=== PATIENT | female | born 1960 | race Caucasian/White ===

== ENCOUNTER 2016-07-08 00:52 | Inpatient (IN) | payer OTHER ==
[2016-07-08] MEDS ORDERED: Sodium Chloride 0.9% 1,000 ML IV ONE ×2 (01:01→03:49)
[2016-07-08] MEDS ORDERED: Metoclopramide 10 MG/2 ML SDV IVPUSH ONE (01:31)
[2016-07-08] MEDS ORDERED: Famotidine 20 MG/2 ML SDV IVPUSH ONE (01:32)
[2016-07-08] MEDS ORDERED: methylPREDNISolone Sodium Succinate 125 MG/2 ML SDV IM ONE (01:34)
[2016-07-08] MEDS ORDERED: Albuterol/Ipratropium 3.0-0.5 MG/3 ML Neb Soln NEB ONE (01:36)
--- NOTE | 2016-07-08 01:38 | EDM.PDOC ---
ED HISTORY OF PRESENT ILLNESS - General Chief Complaint: Respiratory Problem Stated Complaint: TROUBLE BREATHING Time Seen by Provider: 07/08/16 01:15 Source of Information: Reports: Patient History Limitations: Reports: No limitations - History of Present Illness INITIAL COMMENTS - FREE TEXT/NARRATIVE: c/o feeling weak dizzy, SOB. Started to get sick on Thursday, Seen in clinic on dx'd influenza B , strep negative. Started on Tamiflu, unable to take last dose today r/t nausea. Peak flow baseline 300-380, last couple days 260. Fever 103 at home tonight. Severity: moderate Location, General: Reports: generalized Associated Symptoms (General): Reports: cough, fever/chills, loss of appetite, nausea/vomiting, shortness of breath, weakness. Denies: cough w sputum - Related Data Allergies/ADRs: Allergies Allergy/AdvReac Type Severity Reaction Status Date / Time No Known Allergies Allergy Verified 07/08/13 12:26 Home Meds: Home Meds Albuterol [Ventolin HFA] 2 inhalation IH ASDIRECTED PRN 04/13/14 [History] Mometasone/Formoterol [Dulera 200 MCG/5 MCG] 1 puff INH BID 04/13/14 [History] Albuterol [IJD: Albuterol] 2.5 mg INH Q12H 07/08/16 [History] Azelastine HCl [Azelastine] 2 spray NASBOTH BID 07/08/16 [History] Beclomethasone Dipropionate [Beconase Aq] 2 spray NASBOTH DAILY 07/08/16 [ History] Budesonide [Pulmicort] 0.25 mg NEB BID 07/08/16 [History] Cholecalciferol (Vitamin D3) [Vitamin D3] 1,000 unit PO BID 07/08/16 [History] EPINEPHrine [Epinephrine] 0.3 mg IM ASDIRECTED PRN 07/08/16 [History] Fluconazole [Diflucan] 200 mg PO DAILY 07/08/16 [History] Hydrochlorothiazide 25 mg PO DAILY 07/08/16 [History] Ibuprofen 600 mg PO Q8H PRN 07/08/16 [History] Montelukast [Singulair] 10 mg PO BEDTIME 07/08/16 [History] Omalizumab [Xolair] 2.4 l .XX ASDIRECTED 07/08/16 [History] Pantoprazole [Protonix] 40 mg PO BIDAC 07/08/16 [History] Tiotropium [Spiriva HandiHaler] 2 puff INH DAILY 07/08/16 [History] predniSONE 07/08/16 [History] Social & Family History - Tobacco Use Smoking Status *Q: Never Smoker Second Hand Smoke Exposure: No ED ROS GENERAL - Review of Systems Review Of Systems: See Below Constitutional: Reports: fever, chills, weakness, decreased appetite HEENT: Reports: Throat pain (mild, strep test in clinic negative) Respiratory: Reports: Shortness of Breath, Wheezing, Cough Cardiovascular: Reports: Dyspnea on exertion, Lightheadedness GI/Abdominal: Reports: Decreased appetite, Nausea : Reports: no symptoms Musculoskeletal: Reports: other (generalized aches) Skin: Reports: no symptoms Neurological: Reports: No Symptoms Psychiatric: Reports: Anxiety ED EXAM, GENERAL - Physical Exam Exam: See Below Exam Limited By: No limitations General Appearance: alert, moderate distress, obese Eye Exam: bilateral eye: EOMI Ears: normal external exam, normal TMs Nose: normal inspection Throat/Mouth: Normal inspection, Inflammation (mild posterior pharnyx) Head: atraumatic, normocephalic Neck: normal inspection, full range of motion Respiratory/Chest: rales (left base), rhonchi (right), other (frequent cough). No: wheezing Cardiovascular: regular rate, rhythm, no edema, tachycardia GI/Abdominal: normal bowel sounds, soft Back Exam: normal inspection Neurological: alert, oriented, normal cognition Psychiatric: normal affect, anxious (mild) Skin Exam: Warm, Dry, Intact, Normal color, No rash Course - Vital Signs Last Recorded V/S: Last Vital Signs Temp 98.8 F 07/08/16 02:32 Pulse 107 H 07/08/16 02:32 Resp 20 07/08/16 02:32 BP 115/60 07/08/16 02:32 Pulse Ox 94 L 07/08/16 02:32 - Orders/Labs/Meds Orders: Active Orders 24 hr Category Date Time Status EKG 12 Lead [EKG Documentation Completion] [RC] URGENT Care 07/08/16 02:17 Active Oxygen Therapy Adult [Oxygen Therapy, ED] [RC] Care 07/08/16 02:30 Active ASDIRECTED RT Aerosol Therapy [RC] ASDIRECTED Care 07/08/16 01:36 Active Chest 1V Frontal [CR] Urgent Exams 07/08/16 01:00 Taken Chest w Cont [CT] Urgent Exams 07/08/16 02:48 Taken CULTURE BLOOD [BC] Stat Lab 07/08/16 01:09 Received CULTURE BLOOD [BC] Stat Lab 07/08/16 01:15 Received Sodium Chloride 0.9% [Normal Saline] 1,000 ml Med 07/08/16 03:49 Active IV .BOLUS Blood Culture x2 Reflex Set [OM.PC] Stat Oth 07/08/16 01:00 Ordered Medication Orders Sodium Chloride (Normal Saline) 1,000 mls @ 250 mls/hr IV .BOLUS ONE Stop: 07/08/16 07:48 Labs: Laboratory Tests 07/08/16 07/08/16 07/08/16 Range/Units 01:09 01:09 01:15 WBC 11.4 H (5.0-10.0) 10^3/uL RBC 5.03 (4.2-5.4) 10^6/uL Hgb 13.2 (12.0-16.0) g/dL Hct 39.8 (37.0-47.0) % MCV 79.1 L (80-100) fL MCH 26.2 L (27.0-34.0) pg MCHC 33.2 (33.0-35.0) g/dL Plt Count 278 (150-450) 10^3/uL Neut % (Auto) 72.6 (42.2-75.2) % Lymph % (Auto) 23.1 (20.5-50.1) % [place]ander % (Auto) 3.9 (2-8) % Eos % (Auto) 0.1 L (1.0-3.0) % Baso % (Auto) 0.3 (0.0-1.0) % Add Manual Diff Yes Neutrophils % (Manual) 69 % Band Neutrophils % 5 % Lymphocytes % (Manual) 21 % Monocytes % (Manual) 5 % D-Dimer, Quantitative > 5000 H (0-400) ng/mL Sodium 133 L (135-145) mmol/L Potassium 3.9 (3.6-5.0) mmol/L Chloride 97 L (101-111) mmol/L Carbon Dioxide 25.0 (21.0-31.0) mmol/L Anion Gap 14.9 BUN 11 (7-18) mg/dL Creatinine 0.7 (0.6-1.3) mg/dL Est Cr Clr Drug Dosing TNP Estimated GFR (MDRD) > 60 BUN/Creatinine Ratio 15.71 Glucose 105 (74-105) mg/dL Lactic Acid (0.5-2.2) mmol/L Calcium 9.2 (8.4-10.2) mg/dl Total Bilirubin 0.9 (0.2-1.0) mg/dL AST 36 (10-42) IU/L ALT 42 (10-60) IU/L Alkaline Phosphatase 118 (42-121) IU/L Troponin I (0.00-0.02) ng/ml C-Reactive Protein (0.0-1.3) mg/dL Total Protein 7.2 (6.7-8.2) g/dl Albumin 3.7 (3.2-5.5) g/dl Globulin 3.5 Albumin/Globulin Ratio 1.06 Amylase 56 (28-100) U/L Lipase 21 L (22-51) U/L 07/08/16 07/08/16 07/08/16 Range/Units 01:15 01:15 01:15 WBC (5.0-10.0) 10^3/uL RBC (4.2-5.4) 10^6/uL Hgb (12.0-16.0) g/dL Hct (37.0-47.0) % MCV (80-100) fL MCH (27.0-34.0) pg MCHC (33.0-35.0) g/dL Plt Count (150-450) 10^3/uL Neut % (Auto) (42.2-75.2) % Lymph % (Auto) (20.5-50.1) % Lander % (Auto) (2-8) % Eos % (Auto) (1.0-3.0) % Baso % (Auto) (0.0-1.0) % Add Manual Diff Neutrophils % (Manual) % Band Neutrophils % % Lymphocytes % (Manual) % Monocytes % (Manual) % D-Dimer, Quantitative (0-400) ng/mL Sodium (135-145) mmol/L Potassium (3.6-5.0) mmol/L Chloride (101-111) mmol/L Carbon Dioxide (21.0-31.0) mmol/L Anion Gap BUN (7-18) mg/dL Creatinine (0.6-1.3) mg/dL Est Cr Clr Drug Dosing Estimated GFR (MDRD) BUN/Creatinine Ratio Glucose (74-105) mg/dL Lactic Acid 1.2 (0.5-2.2) mmol/L Calcium (8.4-10.2) mg/dl Total Bilirubin (0.2-1.0) mg/dL AST (10-42) IU/L ALT (10-60) IU/L Alkaline Phosphatase (42-121) IU/L Troponin I < 0.02 (0.00-0.02) ng/ml C-Reactive Protein 3.7 H (0.0-1.3) mg/dL Total Protein (6.7-8.2) g/dl Albumin (3.2-5.5) g/dl Globulin Albumin/Globulin Ratio Amylase (28-100) U/L Lipase (22-51) U/L Meds: Medications Generic Name Dose Route Start Last Admin Trade Name Freq PRN Reason Stop Dose Admin Sodium Chloride 1,000 mls @ 250 mls/hr 07/08/16 03:49 Normal Saline IV 07/08/16 07:48 .BOLUS ONE Discontinued Medications Generic Name Dose Route Start Last Admin Trade Name Freq PRN Reason Stop Dose Admin Albuterol/Ipratropium 3 ml 07/08/16 01:36 07/08/16 01:47 Duoneb 3.0-0.5 Mg/3 Ml NEB 07/08/16 01:37 3 ml ONETIME ONE Administration Famotidine 20 mg 07/08/16 01:32 07/08/16 01:38 Pepcid IVPUSH 07/08/16 01:33 20 mg ONETIME ONE Administration Guaifenesin/Codeine Phosphate 5 ml 07/08/16 02:05 07/08/16 02:08 Robitussin Ac PO 07/08/16 02:06 5 ml ONETIME ONE Administration Sodium Chloride 1,000 mls @ 999 mls/hr 07/08/16 01:01 07/08/16 01:19 Normal Saline IV 07/08/16 02:01 999 mls/hr .BOLUS ONE Administration Iopamidol 100 ml 07/08/16 02:50 07/08/16 03:41 Isovue-370 (76%) IVPUSH 07/08/16 02:51 77 ml ONETIME ONE Administration Methylprednisolone Sodium Succinate 125 mg 07/08/16 01:43 07/08/16 01:47 Solu-Medrol IVPUSH 07/08/16 01:44 125 mg ONETIME ONE Administration Metoclopramide HCl 10 mg 07/08/16 01:31 07/08/16 01:38 Reglan IVPUSH 07/08/16 01:32 10 mg ONETIME ONE Administration - Radiology Interpretation Free Text/Narrative:: CXR bilateral basilar pneumonitis, CT Results Date: 07/08/16 (CT PE study negative) - Re-Assessments/Exams Free Text/Narrative Re-Assessment/Exam: 07/08/16 03:01 EKG sinus tach. TC consult Dr. Young accepting of patient. D-dimer elevated. Dr. Young notified. CT chest PE protocol Departure - Departure Time of Disposition: 01:38 Disposition: Admitted As Inpatient 66 Condition: fair Clinical Impression: Exacerbation of asthma, Influenza Additional Instructions: increase fiber in diet miralax one capful daily liquid diet for 24 hours \then advance as tolerated slowly increase walking activity and use of narcotic pain mediations as able. - My Orders Last 24 Hours: My Active Orders 07/08/16 01:00 Chest 1V Frontal [CR] Urgent Blood Culture x2 Reflex Set [OM.PC] Stat 07/08/16 01:09 CULTURE BLOOD [BC] Stat 07/08/16 01:15 CULTURE BLOOD [BC] Stat 07/08/16 01:36 RT Aerosol Therapy [RC] ASDIRECTED 07/08/16 02:17 EKG 12 Lead [EKG Documentation Completion] [RC] URGENT 07/08/16 02:30 Oxygen Therapy Adult [Oxygen Therapy, ED] [RC] ASDIRECTED 07/08/16 02:48 Chest w Cont [CT] Urgent 07/08/16 03:49 Sodium Chloride 0.9% [Normal Saline] 1,000 ml IV .BOLUS - Assessment/Plan Last 24 Hours: My Active Orders 07/08/16 01:00 Chest 1V Frontal [CR] Urgent Blood Culture x2 Reflex Set [OM.PC] Stat 07/08/16 01:09 CULTURE BLOOD [BC] Stat 07/08/16 01:15 CULTURE BLOOD [BC] Stat 07/08/16 01:36 RT Aerosol Therapy [RC] ASDIRECTED 07/08/16 02:17 EKG 12 Lead [EKG Documentation Completion] [RC] URGENT 07/08/16 02:30 Oxygen Therapy Adult [Oxygen Therapy, ED] [] ASDIRECTED 07/08/16 02:48 Chest w Cont [CT] Urgent 07/08/16 03:49 Sodium Chloride 0.9% [Normal Saline] 1,000 ml IV .BOLUS
[2016-07-08 01:41] LABS: CHLORIDE,CL 97 mmol/L (101-111); SODIUM,NA 133 mmol/L (135-145)
[2016-07-08] MEDS ORDERED: methylPREDNISolone Sodium Succinate 125 MG/2 ML SDV IVPUSH ONE (01:43)
[2016-07-08] MEDS ORDERED: Codeine/guaiFENesin 100-10 MG/5 ML Syrup 5 ML Cup PO ONE (02:05)
[2016-07-08] MEDS ORDERED: Iopamidol 755 Mg/ML 100 ML Bottle IVPUSH ONE (02:50)
[2016-07-08] MEDS ORDERED: Azithromycin 500 MG in Sodium Chloride 0.9% 250 ML IV ONE (04:00)
[2016-07-08] MEDS ORDERED: Azithromycin 500 MG Vial ONE (04:19)
[2016-07-08] MEDS: methylPREDNISolone Sodium Succinate 40 MG/1 ML SDV IVPUSH SCH ×3 (04:42→20:28)
[2016-07-08] MEDS: Pantoprazole 40 MG Tab.CR PO SCH ×2 (05:41→17:11)
[2016-07-08] MEDS: Albuterol/Ipratropium 3.0-0.5 MG/3 ML Neb Soln NEB SCH ×5 (07:34→21:59)
--- NOTE | 2016-07-08 08:58 | PCM.HP ---
H&P History of Present Illness - General Date of Service: 07/08/16 Admit Problem/Dx: Admission Diagnosis/Problem Admission Diagnosis/Problem Dyspnea Source of Information: Patient History Limitations: Reports: No limitations - History of Present Illness Initial Comments - Free Text/Narative: Patient is a 56 year old female came in to the emergency room because of persistent shortness of breath. Started last week, has been cough productive of phlegm, with some chest tightness. Had fever last week around 102F. Was seen in the clinic, was diagnosed to have Influenza B, prescribed with Tamiflu. Symptoms however persistent. Was exposed to her granddaughter who had influenza A. Continues to have cough and SOB, and another episode of fever, went to ER. no nausea, vomiting, constipation nor diarrhea. No leg swelling. Headache Pain Score (Numeric/FACES): 0 - Related Data Allergies/Adverse Reactions: Allergies Allergy/AdvReac Type Severity Reaction Status Date / Time No Known Allergies Allergy Verified 07/08/13 12:26 Home Medications: Home Meds Albuterol [Ventolin HFA] 2 inhalation IH ASDIRECTED PRN 04/13/14 [History] Mometasone/Formoterol [Dulera 200 MCG/5 MCG] 1 puff INH BID 04/13/14 [History] Albuterol [IJD: Albuterol] 2.5 mg INH Q12H 07/08/16 [History] Azelastine HCl [Azelastine] 2 spray NASBOTH BID 07/08/16 [History] Beclomethasone Dipropionate [Beconase Aq] 2 spray NASBOTH DAILY 07/08/16 [ History] Budesonide [Pulmicort] 0.25 mg NEB BID 07/08/16 [History] Cholecalciferol (Vitamin D3) [Vitamin D3] 1,000 unit PO BID 07/08/16 [History] EPINEPHrine [Epinephrine] 0.3 mg IM ASDIRECTED PRN 07/08/16 [History] Fluconazole [Diflucan] 200 mg PO DAILY 07/08/16 [History] Hydrochlorothiazide 25 mg PO DAILY 07/08/16 [History] Ibuprofen 600 mg PO Q8H PRN 07/08/16 [History] Montelukast [Singulair] 10 mg PO BEDTIME 07/08/16 [History] Omalizumab [Xolair] 2.4 l .XX ASDIRECTED 07/08/16 [History] Pantoprazole [Protonix] 40 mg PO BIDAC 07/08/16 [History] Tiotropium [Spiriva HandiHaler] 2 puff INH DAILY 07/08/16 [History] predniSONE 07/08/16 [History] Past Medical History HEENT History: Reports: Allergic rhinitis Cardiovascular History: Reports: Heart murmur Respiratory History: Reports: Asthma, Bronchitis, recurrent, Pneumonia, recurrent Gastrointestinal History: Reports: Cholelithiasis, GERD Genitourinary History: Reports: None 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 OB/BYN History: 2 NVD Musculoskeletal History: Reports: Fracture, Osteoporosis Endocrine/Metabolic History: Reports: Obesity/BMI 30+ Hematologic History: Reports: Anemia - Infectious Disease History Infectious Disease History: Reports: Chicken pox, Measles, Shingles - Past Surgical History HEENT Surgical History: Reports: Tonsillectomy GI Surgical History: Reports: Appendectomy, Colonoscopy, EGD Female Surgical History: Reports: None Musculoskeletal Surgical History: Reports: Other (see below) Other Musculoskeletal Surgeries/Procedures:: foot surgery X2 Social & Family History - Family History Family Medical History: Noncontributory - Tobacco Use Smoking Status *Q: Never Smoker Second Hand Smoke Exposure: No - Caffeine Use Caffeine Use: Reports: None - Recreational Drug Use Recreational Drug Use: No H&P Review of Systems - Review of Systems: Review Of Systems: See Below General: Reports: fever, chills Pulmonary: Reports: Shortness of Breath, Wheezing, Cough, Sputum Cardiovascular: Reports: dyspnea on exertion Gastrointestinal: Reports: No symptoms Genitourinary: Reports: no symptoms Neurological: Reports: No Symptoms Exam - Exam Exam: See Below - Vital Signs Vital Signs: Last Vital Signs Temp 36.4 C 07/08/16 07:40 Pulse 74 07/08/16 07:40 Resp 20 07/08/16 07:40 BP 108/59 L 07/08/16 07:40 Pulse Ox 96 07/08/16 07:40 Weight: 99.337 kg - Exam General: alert, oriented Lungs: Crackles, Rhonchi Cardiovascular: regular rate, regular rhythm Abdomen: normal bowel sounds, soft Extremities: normal inspection - Patient Data Result Diagrams: 07/08/16 01:09 07/08/16 01:15 Mick Results last 24 hrs: Microbiology 07/08/16 05:00 Gram Stain - Final Sputum - Expectorated *Q Meaningful Use (ADM) - VTE *Q VTE Criteria *Q: - Stroke *Q Stroke Criteria *Q: - AMI *Q AMI Criteria *Q: Problem List Initiated/Reviewed/Updated: Yes Orders Last 24hrs: Active Orders 24 hr Category Date Time Status Flutter Valve Therapy [RT Chest Physiotherapy] [RC] Care 07/08/16 04:01 Active ASDIRECTED RT Aerosol Therapy [RC] ASDIRECTED Care 07/08/16 04:00 Active RT Incentive Spirometry [RC] ASDIRECTED Care 07/08/16 04:01 Active Albuterol/Ipratropium [DuoNeb 3.0-0.5 MG/3 ML] Med 07/08/16 07:00 Active 3 ml NEB Q4HRRT Azelastine HCl [Azelastine] Med 07/08/16 09:00 Active 2 spray NASBOTH BID Beclomethasone Dipropionate [Beconase Aq] Med 07/08/16 09:00 Active 2 spray NASBOTH DAILY Cholecalciferol (Vitamin D3) [Vitamin D3] Med 07/08/16 09:00 Active 1,000 units PO BID Hydrochlorothiazide Med 07/08/16 09:00 Active 25 mg PO DAILY Magnesium Sulfate/D5W [Magnesium 1 GM in D5W 100 ML] 1 Med 07/08/16 07:57 Active gm Premix Bag 1 bag IV ONETIME Mometasone/Formoterol [Dulera 200-5 MCG] Med 07/08/16 09:00 Active 1 puff IH BID Montelukast [Singulair] Med 07/08/16 21:00 Active 10 mg PO BEDTIME Pantoprazole [Protonix] Med 07/08/16 06:00 Active 40 mg PO BIDAC Sodium Chloride 0.9% [Normal Saline] 1,000 ml Med 07/08/16 04:30 Active IV ASDIRECTED Tiotropium [Spiriva HandiHaler] Med 07/08/16 09:00 Active 18 mcg INH DAILY methylPREDNISolone Sod Succ [Solu-MEDROL] Med 07/08/16 04:30 Active 40 mg IVPUSH Q8H Resuscitation Status Routine Resus Stat 07/08/16 07:57 Ordered Medication Orders Albuterol/Ipratropium (Duoneb 3.0-0.5 Mg/3 Ml) 3 ml NEB Q4HRRT [facility] Last Admin: 07/08/16 07:34 Dose: 3 ml Cholecalciferol (Vitamin D3) 1,000 units PO BID [facility] Hydrochlorothiazide (Hydrochlorothiazide) 25 mg PO DAILY [facility] Sodium Chloride (Normal Saline) 1,000 mls @ 100 mls/hr IV ASDIRECTED [facility] Magnesium Sulfate/Dextrose 1 (gm/ Premix) 100 mls @ 100 mls/hr IV ONETIME ONE Stop: 07/08/16 08:56 Methylprednisolone Sodium Succinate (Solu-Medrol) 40 mg IVPUSH Q8H [facility] Last Admin: 07/08/16 04:42 Dose: 40 mg Mometasone Furoate/Formoterol Fumar (Dulera 200-5 Mcg) 1 puff IH BID [facility] Montelukast Sodium (Singulair) 10 mg PO BEDTIME [facility] (Azelastine Hcl [ Azelastine] 2 [place]) Own Med 2 spray NASBOTH BID [facility] (Beclomethasone Dipropionate [ Beconase Aq] 2 [place] )Own Med* 2 spray NASBOTH DAILY [facility] Pantoprazole Sodium (Protonix) 40 mg PO BIDAC [facility] Last Admin: 07/08/16 05:41 Dose: 40 mg Tiotropium [place] (Spiriva Handihaler) 18 mcg INH DAILY [facility] Assessment/Plan Comment:: 1. Asthma exacerbation - Patient was given Solu-Medrol in the emergency room, this will be followed by Solu-Medrol 40 mg every 8 hours. - Incentive spirometry and flutter valve - Send sputum for Gram stain and culture - Start azithromycin 500 mg IV first day and this will be followed by 250 mg IV - Continue oxygen supplementation and tapers down once appropriate 2. Hypomagnesemia - Replaced with magnesium sulfate 1 g IV - Check magnesium to ensure replacement 3. GERD; Resume pantoprazole Deep vein thrombosis prophylaxis: Lovenox CODE STATUS: Full code
[2016-07-08] MEDS ORDERED: Tiotropium Inhaler 18 MCG Inhalation Powder Cap Kit of 5 INH SCH (09:00)
[2016-07-08] MEDS: Formoterol/Mometasone 200-5 MCG 8.8 GM Inhaler IH SCH ×2 (10:09→20:28)
[2016-07-08] MEDS: [UNRECOGNIZED DRUG - OTHER] INH SCH (10:12)
[2016-07-08] MEDS: AZELASTINE HCL NASBOTH SCH ×2 (10:16→20:28)
[2016-07-08] MEDS: Cholecalciferol (Vitamin D3) 400 Unit Tab PO SCH ×2 (10:17→20:25)
[2016-07-08] MEDS: Hydrochlorothiazide 25 MG Tab PO SCH ×2 (10:17→19:20)
[2016-07-08] MEDS: Enoxaparin 40 MG/0.4 ML Syringe SUBCUT SCH (10:35)
[2016-07-08] MEDS: Budesonide 0.5 MG/2 ML Neb Susp NEB SCH ×2 (10:46→18:28)
[2016-07-08] MEDS: Codeine/guaiFENesin 100-10 MG/5 ML Syrup 5 ML Cup PO PRN ×2 (15:14→22:03)
[2016-07-08] MEDS: Sodium Chloride 0.9% 1,000 ML IV SCH (15:41)
[2016-07-08] MEDS: Montelukast 10 MG Tab PO SCH (20:26)
[2016-07-09] MEDS: Sodium Chloride 0.9% 1,000 ML IV SCH (00:47)
[2016-07-09] MEDS: Albuterol/Ipratropium 3.0-0.5 MG/3 ML Neb Soln NEB SCH ×7 (03:22→22:32)
[2016-07-09] MEDS: methylPREDNISolone Sodium Succinate 40 MG/1 ML SDV IVPUSH SCH ×3 (03:46→20:45)
[2016-07-09] MEDS: Codeine/guaiFENesin 100-10 MG/5 ML Syrup 5 ML Cup PO PRN ×2 (03:49→23:07)
[2016-07-09] MEDS: Pantoprazole 40 MG Tab.CR PO SCH ×2 (05:59→17:36)
[2016-07-09 06:46] LABS: CHLORIDE,CL 108 mmol/L (101-111); SODIUM,NA 141 mmol/L (135-145)
[2016-07-09] MEDS: Budesonide 0.5 MG/2 ML Neb Susp NEB SCH ×2 (07:12→18:14)
[2016-07-09] MEDS: Hydrochlorothiazide 25 MG Tab PO SCH (09:56)
[2016-07-09] MEDS: Cholecalciferol (Vitamin D3) 400 Unit Tab PO SCH ×2 (09:57→20:39)
[2016-07-09] MEDS: Enoxaparin 40 MG/0.4 ML Syringe SUBCUT SCH (09:58)
[2016-07-09] MEDS: Azithromycin 250 MG in Sodium Chloride 0.9% 250 ML IV SCH (09:59)
[2016-07-09] MEDS ORDERED: Hydrochlorothiazide 25 MG Tab PO PRN (10:43)
[2016-07-09] MEDS: Benzonatate 100 MG Cap PO PRN ×2 (11:33→20:43)
[2016-07-09] MEDS: [UNRECOGNIZED DRUG - OTHER] INH SCH (11:48)
[2016-07-09] MEDS: AZELASTINE HCL NASBOTH SCH ×2 (11:49→22:34)
[2016-07-09] MEDS: Formoterol/Mometasone 200-5 MCG 8.8 GM Inhaler IH SCH ×2 (11:49→22:33)
--- NOTE | 2016-07-09 12:28 | PN ---
DATE: 07/09/2016 SUBJECTIVE: Ms. Clau Whitmore is a 56-year-old female, who was admitted with complaint of shortness of breath, cough, and had fever 1 week previously. She was treated for influenza B (completed treatment). The patient was admitted with working diagnosis of acute exacerbation of asthma. Today, she indicated she is still coughing a lot. The cough is mostly nonproductive. No hemoptysis. She has associated shortness of breath. No chest pain. REVIEW OF SYSTEMS: Constitutional, cardiac, respiratory, gastrointestinal, genitourinary systems were reviewed. No other pertinent findings except as noted above. PHYSICAL EXAMINATION: Abdomen: Soft and nontender. Extremities: No pedal edema. Chest: Diminished air entry bilaterally. No significant crackles appreciated. Extremities: No pedal edema. No finger clubbing. ASSESSMENT: 1. Asthma exacerbation. The patient is not wheezing much, but she is coughing. 2. Acute bronchitis. Has some coughing, is mostly nonproductive. 3. Hypomagnesemia. 4. Gastroesophageal reflux disease. 5. Anemia, mild. Hemoglobin at 11.7. PLAN: 1. Continue current treatment. Continue azithromycin. 2. Continue cough syrup. 3. Aggressive nebulization. [facility] /[id number]
[2016-07-09] MEDS: Montelukast 10 MG Tab PO SCH (20:39)
[2016-07-10] MEDS: Albuterol/Ipratropium 3.0-0.5 MG/3 ML Neb Soln NEB SCH ×7 (04:15→22:41)
[2016-07-10] MEDS: Sodium Chloride 0.9% 10 ML Syringe FLUSH PRN ×3 (04:15→12:36)
[2016-07-10] MEDS: methylPREDNISolone Sodium Succinate 40 MG/1 ML SDV IVPUSH SCH ×3 (04:15→19:56)
[2016-07-10] MEDS: Benzonatate 100 MG Cap PO PRN ×2 (04:24→20:07)
[2016-07-10] MEDS: Pantoprazole 40 MG Tab.CR PO SCH ×2 (06:18→18:01)
[2016-07-10] MEDS: Codeine/guaiFENesin 100-10 MG/5 ML Syrup 5 ML Cup PO PRN ×2 (06:23→22:46)
[2016-07-10] MEDS: Budesonide 0.5 MG/2 ML Neb Susp NEB SCH ×3 (07:38→19:38)
[2016-07-10] MEDS: Formoterol/Mometasone 200-5 MCG 8.8 GM Inhaler IH SCH ×2 (08:53→19:52)
[2016-07-10] MEDS: [UNRECOGNIZED DRUG - OTHER] INH SCH (08:55)
[2016-07-10] MEDS: AZELASTINE HCL NASBOTH SCH ×2 (08:56→20:57)
[2016-07-10] MEDS: Enoxaparin 40 MG/0.4 ML Syringe SUBCUT SCH (08:57)
[2016-07-10] MEDS: Cholecalciferol (Vitamin D3) 400 Unit Tab PO SCH ×2 (09:00→20:57)
[2016-07-10] MEDS: Azithromycin 250 MG in Sodium Chloride 0.9% 250 ML IV SCH (09:05)
[2016-07-10] MEDS ORDERED: Sodium Chloride 0.65% Nasal Spray 45 ML Bottle NAS PRN (09:57)
--- NOTE | 2016-07-10 10:52 | PN ---
DATE: 07/10/2016 SUBJECTIVE: Today, the patient offers no new complaints. She is still coughing very severe that the cough has improved some. No fever documented. Still has some shortness of breath and feels weak. REVIEW OF SYSTEMS: Gastrointestinal, respiratory, and cardiac reviewed. No other pertinent findings. OBJECTIVE: General: The patient is alert, oriented to place, time, and person. Head: Atraumatic and normocephalic. Chest: Diminished breaths sound bilaterally. No expiratory rhonchi. CVS: Regular rate and rhythm. Abdomen: Soft and nontender. Extremities: No pedal edema. No finger clubbing. Vital Signs: Reviewed. Blood pressure 130/72, pulse 65, and respiratory rate 16 per minute. LABORATORY DATA: White count is 8.4, hemoglobin was 11.7. Basic metabolic profile unremarkable. ASSESSMENT: 1. Acute exacerbation of asthma. 2. Acute bronchitis. No definite infiltrate on chest x-ray. 3. Hypomagnesemia, corrected. 4. Gastroesophageal reflux disease. 5. Anemia. Hemoglobin is mildly low. PLAN: 1. Tessalon Perles. 2. Continue Adriamycin. 3. Start the patient on Dulera 2 puffs b.i.d. 4. Beclomethasone b.i.d. 5. Change Spiriva to 2 puffs b.i.d. 6. Close hemodynamic monitoring. [facility] /[id number]
[2016-07-10] MEDS: Montelukast 10 MG Tab PO SCH (20:56)
[2016-07-10] MEDS: TIOTROPIUM BROMIDE INH SCH (20:57)
[2016-07-11] MEDS: Albuterol/Ipratropium 3.0-0.5 MG/3 ML Neb Soln NEB SCH ×4 (03:15→15:35)
[2016-07-11] MEDS: methylPREDNISolone Sodium Succinate 40 MG/1 ML SDV IVPUSH SCH ×2 (04:20→12:47)
[2016-07-11] MEDS: Codeine/guaiFENesin 100-10 MG/5 ML Syrup 5 ML Cup PO PRN (04:20)
[2016-07-11] MEDS: Pantoprazole 40 MG Tab.CR PO SCH ×2 (06:21→17:00)
[2016-07-11] MEDS: Budesonide 0.5 MG/2 ML Neb Susp NEB SCH (08:30)
[2016-07-11] MEDS: Enoxaparin 40 MG/0.4 ML Syringe SUBCUT SCH (10:26)
[2016-07-11] MEDS: Cholecalciferol (Vitamin D3) 400 Unit Tab PO SCH (10:27)
[2016-07-11] MEDS: Azithromycin 250 MG in Sodium Chloride 0.9% 250 ML IV SCH (10:28)
[2016-07-11] MEDS: Sodium Chloride 0.9% 10 ML Syringe FLUSH PRN (10:30)
[2016-07-11] MEDS: Benzonatate 100 MG Cap PO PRN (10:36)
[2016-07-11] MEDS: Formoterol/Mometasone 200-5 MCG 8.8 GM Inhaler IH SCH (11:16)
[2016-07-11] MEDS: AZELASTINE HCL NASBOTH SCH (11:17)
[2016-07-11] MEDS: TIOTROPIUM BROMIDE INH SCH (11:17)
--- NOTE | 2016-07-11 14:39 | DISCH ---
FINAL DIAGNOSES: 1. Acute exacerbation of asthma. 2. Acute bronchitis. 3. Hypomagnesemia. 4. Gastroesophageal reflux disease. 5. Anemia. SUMMARY OF HOSPITAL COURSE: Ms. Whitmore is a 56-year-old female with a medical history of asthma. The patient presented to the emergency room with complaint of shortness of breath and cough. She was recently treated for influenza type B and completed the normal dose of Tamiflu. She continued to cough. The patient got admitted to the hospital, was placed on aggressive nebulization, steroids, and antibiotics azithromycin. Gradually her condition improved. She still feels weak, but her bronchospasm has improved. She was using Tessalon Perles which was effective in controlling her symptoms. She will be discharged on oral doxycycline as well as tapering dose of prednisone. 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 PHYSICAL EXAMINATION AT DISCHARGE: General: The patient is alert, oriented to place, time, and person. Head: Atraumatic and normocephalic. Ear, Nose, and Throat: Unremarkable. Neck: Supple. Chest: Diminished air entry bilaterally. CVS: Regular rate and rhythm. Abdomen: Soft, nontender. Extremities: No pedal edema or finger clubbing. Skin: No rash. [facility] /[id number]
[2016-07-11 15:11] VITALS: BP 123/71
--- NOTE | 2016-07-23 08:44 | EKG ---
07/08/2016- DELTA DODD - EKG done on a 56-year-old female, showing sinus tachycardia with a heart rate of 107. Normal intervals. No acute ST-T wave changes. [facility] /[id number]
== END 2016-07-11 18:15 | disposition home or self-care (01) | DRG 203 ==
LOC: DL.ED 00:52 → DL.MS 03:52 → UNDOADMIN 03:52 → DL.MS 03:59
PROVIDERS: ADMIT Internal Medicine; ATTEND Internal Medicine
DX: J45.901 Unspecified asthma with (acute) exacerbation (principal); K21.9 Gastro-esophageal reflux disease without esophagitis; D64.9 Anemia, unspecified; J20.9 Acute bronchitis, unspecified; E83.42 Hypomagnesemia; Z79.899 Other long term (current) drug therapy
CPT/HCPCS: 36415; 71010; 71260; 80048; 80053; 82150; 83605; 83690; 83735; 84484; 85025; 85027; 85379; 86140; 87040; 87070; 87077; 87186; 87205; 93005; 94640; 96361; 96374; 96375; 99285; A9270-GY; J0456; J1650; J2765; J2920; J2930; J3475; J7030; J7050; Q9967; S0028

== ENCOUNTER 2020-02-23 13:20 | Observation (INO) | payer OTHER ==
[2020-02-23] MEDS ORDERED: Albuterol 6.7 GM Inhaler INH PRN (14:00)
[2020-02-23] MEDS ORDERED: Ondansetron 4 MG Tab.DIS PO PRN (14:00)
[2020-02-23] MEDS ORDERED: Acetaminophen 325 MG Tab PO PRN (14:11)
[2020-02-23] MEDS ORDERED: guaiFENesin/Dextromethorphan 100-10 MG/5 ML Soln 5 ML Cup PO PRN (14:14)
[2020-02-23] MEDS ORDERED: Acetaminophen 650 MG Supp RECTAL PRN (14:16)
[2020-02-23] MEDS ORDERED: Docusate Sodium 100 MG Cap PO PRN (14:16)
--- NOTE | 2020-02-23 15:03 | CR ---
EXAMINATION: Chest 1V Frontal SEX: Female AGE: 60 years CLINICAL HISTORY: 60-year-old female with clinical "respiratory failure". Interpretation: Suspicious. Subtle new peripheral patchy density both lung hathaway (compared to 08 July 2016 CXR). COVID test? Suggest unenhanced CT scan of the chest. Normal cardiac silhouette i.e. size and configuration. No pulmonary vascular congestion, cephalization of flow, alveolar edema or dependent pleural effusion. No lung mass or hilar lymphadenopathy. No pneumothorax or pneumomediastinum. Midline tracheal bronchial airway unremarkable.
[2020-02-23 15:09] LABS: ANION GAP 14.7 mEq/L (7-13); CHLORIDE,CL 101 mmol/L (98-107); SODIUM,NA 139 mmol/L (136-145)
--- NOTE | 2020-02-23 15:14 | PCM.HP ---
H&P History of Present Illness - General Date of Service: 02/23/20 Admit Problem/Dx: Admission Diagnosis/Problem Admission Diagnosis/Problem Pneumonia Source of Information: Patient - History of Present Illness Initial Comments - Free Text/Narative: 60-year-old lady with a history of asthma, nocturnal hypoxemia requiring 2 L nasal The patient has poor air quality around her house with grass burning. She has been experiencing increased shortness of breath, associated fever . Some cough. her home oxygen saturations remained 91-97% on room air During the day on 20 February the patient tested positive for Covid. Chest x-ray was abnormal showing Bilateral pneumonia She started to use nebulizers instead her usual inhalers which helped her breathing. She also started to use some oxygen during the day She had a few loose bowel movements - Related Data Allergies/Adverse Reactions: Allergies Allergy/AdvReac Type Severity Reaction Status Date / Time Iodinated Contrast Media Allergy Other Verified 02/23/20 14:09 Home Medications: Home Meds Albuterol [Ventolin HFA] 2 puff IH Q4HR PRN 04/13/14 [History] Budesonide [Pulmicort] 0.25 mg NEB DAILY PRN 07/08/16 [History] EPINEPHrine [Epinephrine] 0.3 mg IM ASDIRECTED PRN 07/08/16 [History] Ibuprofen 600 mg PO Q8H PRN 07/08/16 [History] Montelukast [Singulair] 10 mg PO BEDTIME 07/08/16 [History] Omalizumab [Xolair] 2.4 ml INJECT Q14D 07/08/16 [History] Acetaminophen 650 mg PO Q6HR PRN 02/23/20 [History] Albuterol [Ventolin HFA] 1 - 2 puff INH Q4HR PRN 02/23/20 [History] Aspirin 81 mg PO DAILY 02/23/20 [History] Azithromycin 250 mg PO DAILY 02/23/20 [History] Budesonide/Formoterol Fumarate [Budesonide-Formoterol 160-4.5] 2 puff IH BID 02/23/20 [History] Fluticasone Furoate [Veramyst] 2 spray NS DAILY 02/23/20 [History] Ipratropium/Albuterol Sulfate [Iprat-Albut 0.5-3(2.5) mg/3 ml] 3 ml IH Q4H PRN 02/23/20 [History] L.acidoph,Paracasei, B.lactis [Probiotic] 1 tab PO DAILY 02/23/20 [History] Mag Hydrox/Aluminum Hyd/Simeth [Maalox Maximum Strength Susp] 5 - 10 ml PO QID PRN 02/23/20 [History] Mometasone Furoate [Nasonex [place]] 2 spray NASBOTH BID 02/23/20 [History] Ondansetron [Zofran ODT] 8 mg PO Q6H PRN 02/23/20 [History] Pantoprazole Sodium [Protonix] 40 mg PO BID 02/23/20 [History] Rosuvastatin [Crestor] 10 mg PO BEDTIME 02/23/20 [History] Tiotropium [Spiriva HandiHaler] 2 puff INH DAILY 02/23/20 [History] Triamcinolone Acetonide [Kenalog 0.1% Crm] 1 applic TOP BID 02/23/20 [History] Ubidecarenone [Co Q-10] 100 mg PO DAILY 02/23/20 [History] levalbuterol HCL [Levalbuterol HCl] 1.25 mg IH Q4HR PRN 02/23/20 [History] predniSONE [Prednisone] 40 mg PO BID 02/23/20 [History] Past Medical History HEENT History: Reports: Allergic Rhinitis Cardiovascular History: Reports: Heart Murmur Respiratory History: Reports: Asthma, Bronchitis, Recurrent, Pneumonia, Recurrent, Other (See Below) Other Respiratory History: bronchiectasis Gastrointestinal History: Reports: Cholelithiasis, GERD Genitourinary History: Reports: None [employer] History: Reports: Other OB/BYN History: 2 NVD Musculoskeletal History: Reports: Osteoarthritis Neurological History: Reports: None Psychiatric History: Reports: None Endocrine/Metabolic History: Reports: Obesity/BMI 30+ Hematologic History: Reports: Anemia Immunologic History: Reports: None Oncologic (Cancer) History: Reports: None - Infectious Disease History Infectious Disease History: Reports: None - Past Surgical History HEENT Surgical History: Reports: Adenoidectomy, Tonsillectomy Cardiovascular Surgical History: Reports: None Respiratory Surgical History: Reports: None GI Surgical History: Reports: Appendectomy, Cholecystectomy, Colonoscopy, EGD Female Surgical History: Reports: None Musculoskeletal Surgical History: Reports: Other (See Below) Dermatological Surgical History: Reports: Skin Biopsy Social & Family History - Family History Family Medical History: Noncontributory - Tobacco Use Tobacco Use Status *Q: Never Tobacco User Second Hand Smoke Exposure: No - Caffeine Use Caffeine Use: Reports: Coffee - Recreational Drug Use Recreational Drug Use: No H&P Review of Systems - Review of Systems: Review Of Systems: See Below General: Reports: Fever, Chills, Malaise, Weakness Pulmonary: Reports: Shortness of Breath. Denies: Wheezing Cardiovascular: Denies: Edema Gastrointestinal: Denies: Abdominal Pain Musculoskeletal: Reports: Back Pain. Denies: Leg Pain Exam - Exam Exam: See Below - Vital Signs Vital Signs: Last Vital Signs Temp 99.0 F 02/23/20 13:41 Pulse 96 02/23/20 13:41 Resp 22 H 02/23/20 13:41 BP 116/64 02/23/20 13:41 Pulse Ox 95 02/23/20 13:41 Weight: 213 lb 6.4 oz - Exam Quality Assessment: No: Supplemental Oxygen General: Alert, Oriented Neck: Supple Lungs: Normal Respiratory Effort, Decreased Breath Sounds. No: Rhonchi, Wheezing Cardiovascular: Regular Rate, Regular Rhythm GI/Abdominal Exam: Normal Bowel Sounds, Soft, Non-Tender Extremities: No Pedal Edema - Patient Data Lab Results Last 24 hrs: Laboratory Results - last 24 hr 02/23/20 Range/Units 14:30 WBC 3.9 L (5.0-10.0) 10^3/uL RBC 4.93 (4.2-5.4) 10^6/uL Hgb 12.7 (12.0-16.0) g/dL Hct 39.2 (37.0-47.0) % MCV 79.5 L (80-100) fL MCH 25.8 L (27.0-34.0) pg MCHC 32.4 L (33.0-35.0) g/dL Plt Count 230 (150-450) 10^3/uL Neut % (Auto) 59.6 (42.2-75.2) % Lymph % (Auto) 32.1 (20.5-50.1) % [place] % (Auto) 7.2 (2-8) % Eos % (Auto) 0.8 L (1.0-3.0) % Baso % (Auto) 0.3 (0.0-1.0) % Add Manual Diff Yes Result Diagrams: 02/23/20 14:30 02/23/20 14:30 Mick Results Last 24 hrs: Microbiology 02/23/20 14:35 Anaerobic Blood Culture - Final Blood - Arm, Right - Problem List (1) Pneumonia due to COVID-19 virus SNOMED Code(s): 242388832905053983 ICD Code: U07.1 - COVID-19; J12.89 - OTHER VIRAL PNEUMONIA Status: Acute Current Visit: Yes (2) Exacerbation of asthma SNOMED Code(s): 777600692 ICD Code: J45.901 - UNSPECIFIED ASTHMA WITH (ACUTE) EXACERBATION Status: Acute Current Visit: No Problem List Initiated/Reviewed/Updated: Yes Orders Last 24hrs: Active Orders 24 hr Category Date Time Status Patient Status [ADT] Routine ADT 02/23/20 14:16 Active Antiembolic Devices [RC] PER UNIT ROUTINE Care 02/23/20 14:18 Active Nurse Communication: Isolation [RC] ASDIRECTED Care 02/23/20 14:12 Active Oxygen Therapy [RC] PRN Care 02/23/20 14:16 Active Peripheral IV Care [RC] . DIRECTED Care 02/23/20 14:18 Active RT Post Treatment Assessment [RC] Click to Edit Care 02/23/20 14:16 Active RT Post Treatment Assessment [RC] Click to Edit Care 02/23/20 14:23 Active RT Pre-Treatment Assessment [RC] Click to Edit Care 02/23/20 14:16 Active RT Pre-Treatment Assessment [RC] Click to Edit Care 02/23/20 14:23 Active Up With Assistance [RC] ASDIRECTED Care 02/23/20 14:16 Active VTE/DVT Education [RC] PER UNIT ROUTINE Care 02/23/20 14:16 Active Vital Signs [RC] Q4H Care 02/23/20 14:16 Active Regular Diet [DIET] Diet 02/23/20 Dinner Active BASIC METABOLIC PANEL,BMP [CHEM] Stat Lab 02/23/20 14:30 Received C-REACTIVE PROTEIN [CHEM] Stat Lab 02/23/20 14:30 Received CBC WITH AUTO DIFF [HEME] Stat Lab 02/23/20 14:30 Received CULTURE BLOOD [BC] Stat Lab 02/23/20 14:30 Received CULTURE BLOOD [BC] Stat Lab 02/23/20 14:35 Received CULTURE SPUTUM + SMEAR [RM] Routine Lab 02/23/20 14:12 Ordered D-DIMER QUANTITATIVE [COAG] Stat Lab 02/23/20 14:30 Received FERRITIN [CHEM] Routine Lab 02/23/20 14:30 Received HEPATIC FUNCTION PANEL,HFP [CHEM] Stat Lab 02/23/20 14:30 Received INR,PT,PROTHROMBIN TIME [COAG] Routine Lab 02/23/20 14:30 Received LACTATE DEHYDROGENASE,LDH [CHEM] Stat Lab 02/23/20 14:30 Received LACTATE SEPSIS W/ REFLEX [CHEM] Stat Lab 02/23/20 14:30 Received MANUAL DIFFERENTIAL QA/NC [HEME] Stat Lab 02/23/20 14:30 Results PROCALCITONIN [REF] Stat Lab 02/23/20 14:30 Received Acetaminophen [TylenoL] Med 02/23/20 14:11 Ordered 650 mg PO Q4H PRN Acetaminophen [Tylenol] Med 02/23/20 14:16 Ordered 650 mg RECTAL Q4H PRN Albuterol [Proventil HFA] Med 02/23/20 14:00 Active 0 gm INH Q4HR PRN Aspirin Med 02/24/20 09:00 Ordered 81 mg PO DAILY Cholecalciferol (Vitamin D3) [Vitamin D3] Med 02/23/20 14:15 Ordered 25 mcg PO DAILY Dextromethorphan/guaiFENesin [Robitussin DM] Med 02/23/20 14:14 Ordered 10 ml PO Q6H PRN Docusate Sodium [Colace] Med 02/23/20 14:16 Ordered 100 mg PO BID PRN Enoxaparin [Lovenox] Med 02/23/20 14:30 Ordered 40 mg SUBCUT DAILY Montelukast [Singulair] Med 02/23/20 21:00 Ordered 10 mg PO BEDTIME Multivitamins/Minerals [Vitamins and Minerals] Med 02/23/20 15:00 Ordered 1 tab PO WITHBREAKFAST Ondansetron [Zofran ODT] Med 02/23/20 14:00 Active 4 mg PO Q4HR PRN Pantoprazole [ProTONIX] Med 02/23/20 21:00 Ordered 40 mg PO BID Sodium Chloride 0.9% [Saline Flush] Med 02/23/20 14:16 Active 10 ml FLUSH ASDIRECTED PRN Tiotropium [Spiriva HandiHaler] Med 02/24/20 09:00 Ordered DOSE mcg INH DAILY Zolpidem [Ambien] Med 02/23/20 21:00 Active 5 mg PO BEDTIME PRN dexAMETHasone Med 02/23/20 14:15 Ordered 6 mg PO DAILY Antiembolic Hose [OM.PC] Per Unit Routine Oth 02/23/20 14:17 Ordered Isolation [COMM] Stat Oth 02/23/20 14:11 Active Peripheral IV Insertion Adult [OM.PC] Routine Oth 02/23/20 14:16 Ordered Saline Lock Insert [OM.PC] Routine Oth 02/23/20 14:16 Ordered Resuscitation Status Routine Resus Stat 02/23/20 14:16 Ordered Medication Orders Acetaminophen (Tylenol) 650 mg PO Q4H PRN PRN Reason: Fever Greater Than 101 Acetaminophen (Tylenol) 650 mg RECTAL Q4H PRN PRN Reason: Pain (mild 1-3) Albuterol (Proventil Hfa) 0 gm INH Q4HR PRN PRN Reason: Wheezing Aspirin (Aspirin) 81 mg PO DAILY [facility] Cholecalciferol (Vitamin D3) 25 mcg PO DAILY [facility] Dexamethasone (Dexamethasone) 6 mg PO DAILY [facility] Stop: 03/03/20 09:01 Docusate Sodium (Colace) 100 mg PO BID PRN PRN Reason: Constipation Enoxaparin Sodium (Lovenox) 40 mg SUBCUT DAILY [facility] Guaifenesin/Phenylephrine HCl (Robitussin Dm) 10 ml PO Q6H PRN PRN Reason: Cough Montelukast Sodium (Singulair) 10 mg PO BEDTIME [facility] Multivitamins/Minerals (Vitamins And Minerals) 1 tab PO WITHBREAKFAST [facility] Ondansetron HCl (Zofran Odt) 4 mg PO Q4HR PRN PRN Reason: nausea, able to take PO Pantoprazole Sodium (Protonix) 40 mg PO BID [facility] Sodium Chloride (Saline Flush) 10 ml FLUSH ASDIRECTED PRN PRN Reason: Keep Vein Open Tiotropium [place] (Spiriva Handihaler) mcg INH DAILY [facility] Zolpidem Tartrate (Ambien) 5 mg PO BEDTIME PRN PRN Reason: Sleep Assessment/Plan Comment:: 60-year-old with a history of asthma, nocturnal hypoxemia requiring 2 L nasal cannula oxygen at night. Presented with increasing shortness of breath. Follow closely for Acute hypoxemic respiratory failure secondary to Covid 19 pneumonia Supplement oxygen as needed supplement oxygen at night as baseline Covid 19 pneumonia Comorbidities: asthma, home oxygen 2 l/min at night symptoms started 02/17 with fever, sob Positive covid 19 screen on 02/20 Continues to be sob CXR abnormal 02/20 associated with no hypoxemia LFT, Renal fx. Is good treat with Remdesivir: no not hypoxemic Dexamethasone 11/5- Plasma: no not hypoxemic evaluate for concurrent bacterial infections Follow pro-calcitonin levels In the meantime hold Abx Ddimer is low - DVT prophylaxis SQ Lovenox Asthma with acute exacerbation Start dexamethasone 11/5- Use inhalers Start dulera scheduled Albuterol as needed Continue Singulair, spiriva
[2020-02-23] MEDS: Pantoprazole 40 MG Tab.CR PO SCH ×2 (17:25→21:05)
[2020-02-23] MEDS: Multivitamins, Therapeutic with Minerals Tab PO SCH (17:26)
[2020-02-23] MEDS: Cholecalciferol (Vitamin D3) 25 MCG Tab PO SCH (17:26)
[2020-02-23] MEDS: Dexamethasone 2 MG Tab PO SCH (17:27)
[2020-02-23] MEDS: Enoxaparin 40 MG/0.4 ML Syringe SUBCUT SCH (17:28)
[2020-02-23] MEDS ORDERED: Zolpidem 5 MG Tab PO PRN (21:00)
[2020-02-23] MEDS: Montelukast 10 MG Tab PO SCH (21:06)
[2020-02-23] MEDS: Tiotropium Inhaler 18 MCG Inhalation Powder Cap Kit of 5 INH SCH (21:07)
[2020-02-24] MEDS: Pantoprazole 40 MG Tab.CR PO SCH ×2 (08:26→21:06)
[2020-02-24] MEDS: Multivitamins, Therapeutic with Minerals Tab PO SCH (08:26)
[2020-02-24] MEDS: Aspirin 325 MG Tab PO SCH (08:26)
[2020-02-24] MEDS: Dexamethasone 2 MG Tab PO SCH (08:26)
[2020-02-24] MEDS: Enoxaparin 40 MG/0.4 ML Syringe SUBCUT SCH (08:27)
[2020-02-24] MEDS: Cholecalciferol (Vitamin D3) 25 MCG Tab PO SCH (08:32)
[2020-02-24] MEDS ORDERED: Tiotropium Inhaler 18 MCG Inhalation Powder Cap Kit of 5 INH SCH (09:00)
[2020-02-24] MEDS ORDERED: Aspirin 81 MG Tab.Chew PO SCH (09:00)
[2020-02-24] MEDS: Tiotropium Inhaler 18 MCG Inhalation Powder Cap Kit of 5 INH SCH ×3 (10:06→21:10)
[2020-02-24] MEDS: Formoterol/Mometasone 200-5 MCG 8.8 GM Inhaler IH SCH ×2 (11:27→17:35)
--- NOTE | 2020-02-24 13:21 | PCM.PN ---
- General Info Date of Service: 02/24/20 Subjective Update: feeling well Shortness of breath is better but still present with minimal activity She is not on oxygen during the day but has been using it with activity and during the night No associated chest pain no diarrhea - Review of Systems General: Reports: Fatigue, Malaise. Denies: Fever Cardiovascular: Denies: Chest Pain, Edema Gastrointestinal: Denies: Abdominal Pain - Patient Data Vitals - Most Recent: Last Vital Signs Temp 97.9 F 02/24/20 09:38 Pulse 88 02/24/20 09:38 Resp 18 02/24/20 09:38 BP 118/72 02/24/20 09:38 Pulse Ox 98 02/24/20 09:38 Weight - Most Recent: 213 lb 6.4 oz I&O - Last 24 Hours: Intake & Output 02/23/20 02/24/20 02/24/20 22:59 06:59 14:59 Intake Total 240 Balance 240 Lab Results Last 24 Hours: Laboratory Results - last 24 hr 02/23/20 02/23/20 02/23/20 Range/Units 14:30 14:30 14:30 WBC 3.9 L (5.0-10.0) 10^3/uL RBC 4.93 (4.2-5.4) 10^6/uL Hgb 12.7 (12.0-16.0) g/dL Hct 39.2 (37.0-47.0) % MCV 79.5 L (80-100) fL MCH 25.8 L (27.0-34.0) pg MCHC 32.4 L (33.0-35.0) g/dL Plt Count 230 (150-450) 10^3/uL Neut % (Auto) 59.6 (42.2-75.2) % Lymph % (Auto) 32.1 (20.5-50.1) % [place] % (Auto) 7.2 (2-8) % Eos % (Auto) 0.8 L (1.0-3.0) % Baso % (Auto) 0.3 (0.0-1.0) % Add Manual Diff Yes Neutrophils % (Manual) 61 (42-75) % Lymphocytes % (Manual) 32 (20-50) % Monocytes % (Manual) 6 (2-8) % Eosinophils % (Manual) 1 (1-3) % PT (9.0-12.0) SEC INR (0.9-1.2) D-Dimer, Quantitative 311 (0-400) ng/mL Sodium (136-145) mmol/L Potassium (3.5-5.1) mmol/L Chloride (98-107) mmol/L Carbon Dioxide (21-32) mmol/L Anion Gap (7-13) mEq/L BUN (7-18) mg/dL Creatinine (0.55-1.02) mg/dL Est Cr Clr Drug Dosing mL/min Estimated GFR (MDRD) Glucose (74-99) mg/dL Lactic Acid (0.4-2.0) mmol/L Calcium (8.5-10.1) mg/dL Ferritin 126 (8-252) mg/mL Total Bilirubin (0.2-1.0) mg/dL Direct Bilirubin (0.0-0.2) mg/dL Indirect Bilirubin AST (15-37) U/L ALT (14-59) U/L Alkaline Phosphatase (46-116) U/L Lactate Dehydrogenase (81-234) U/L C-Reactive Protein (0.0-0.9) mg/dL Total Protein (6.4-8.2) g/dL Albumin (3.4-5.0) g/dL Globulin Albumin/Globulin Ratio 02/23/20 02/23/20 02/23/20 Range/Units 14:30 14:30 14:30 WBC (5.0-10.0) 10^3/uL RBC (4.2-5.4) 10^6/uL Hgb (12.0-16.0) g/dL Hct (37.0-47.0) % MCV (80-100) fL MCH (27.0-34.0) pg MCHC (33.0-35.0) g/dL Plt Count (150-450) 10^3/uL Neut % (Auto) (42.2-75.2) % Lymph % (Auto) (20.5-50.1) % [place] % (Auto) (2-8) % Eos % (Auto) (1.0-3.0) % Baso % (Auto) (0.0-1.0) % Add Manual Diff Neutrophils % (Manual) (42-75) % Lymphocytes % (Manual) (20-50) % Monocytes % (Manual) (2-8) % Eosinophils % (Manual) (1-3) % PT 9.9 (9.0-12.0) SEC INR 1.0 (0.9-1.2) D-Dimer, Quantitative (0-400) ng/mL Sodium 139 (136-145) mmol/L Potassium 3.7 (3.5-5.1) mmol/L Chloride 101 (98-107) mmol/L Carbon Dioxide 27 (21-32) mmol/L Anion Gap 14.7 H (7-13) mEq/L BUN 8 (7-18) mg/dL Creatinine 0.70 (0.55-1.02) mg/dL Est Cr Clr Drug Dosing 72.25 mL/min Estimated GFR (MDRD) > 60 Glucose 91 (74-99) mg/dL Lactic Acid 0.9 (0.4-2.0) mmol/L Calcium 8.4 L (8.5-10.1) mg/dL Ferritin (8-252) mg/mL Total Bilirubin 0.5 (0.2-1.0) mg/dL Direct Bilirubin 0.1 (0.0-0.2) mg/dL Indirect Bilirubin 0.4 AST 53 H (15-37) U/L ALT 65 H (14-59) U/L Alkaline Phosphatase 204 H (46-116) U/L Lactate Dehydrogenase 268 H (81-234) U/L C-Reactive Protein 3.2 H (0.0-0.9) mg/dL Total Protein 7.3 (6.4-8.2) g/dL Albumin 3.5 (3.4-5.0) g/dL Globulin 3.8 Albumin/Globulin Ratio 0.9 02/24/20 02/24/20 Range/Units 06:50 06:50 WBC (5.0-10.0) 10^3/uL RBC (4.2-5.4) 10^6/uL Hgb (12.0-16.0) g/dL Hct (37.0-47.0) % MCV (80-100) fL MCH (27.0-34.0) pg MCHC (33.0-35.0) g/dL Plt Count (150-450) 10^3/uL Neut % (Auto) (42.2-75.2) % Lymph % (Auto) (20.5-50.1) % [place] % (Auto) (2-8) % Eos % (Auto) (1.0-3.0) % Baso % (Auto) (0.0-1.0) % Add Manual Diff Neutrophils % (Manual) (42-75) % Lymphocytes % (Manual) (20-50) % Monocytes % (Manual) (2-8) % Eosinophils % (Manual) (1-3) % PT (9.0-12.0) SEC INR (0.9-1.2) D-Dimer, Quantitative 157 (0-400) ng/mL Sodium (136-145) mmol/L Potassium (3.5-5.1) mmol/L Chloride (98-107) mmol/L Carbon Dioxide (21-32) mmol/L Anion Gap (7-13) mEq/L BUN (7-18) mg/dL Creatinine (0.55-1.02) mg/dL Est Cr Clr Drug Dosing mL/min Estimated GFR (MDRD) Glucose (74-99) mg/dL Lactic Acid (0.4-2.0) mmol/L Calcium (8.5-10.1) mg/dL Ferritin (8-252) mg/mL Total Bilirubin 0.5 (0.2-1.0) mg/dL Direct Bilirubin 0.1 (0.0-0.2) mg/dL Indirect Bilirubin 0.4 AST 49 H (15-37) U/L ALT 66 H (14-59) U/L Alkaline Phosphatase 209 H (46-116) U/L Lactate Dehydrogenase (81-234) U/L C-Reactive Protein (0.0-0.9) mg/dL Total Protein 7.3 (6.4-8.2) g/dL Albumin 3.3 L (3.4-5.0) g/dL Globulin 4.0 Albumin/Globulin Ratio 0.83 Mick Results Last 24 Hours: Microbiology 02/23/20 14:35 Anaerobic Blood Culture - Final Blood - Arm, Right Med Orders - Current: Current Medications Acetaminophen (Tylenol) 650 mg PO Q4H PRN PRN Reason: Fever Greater Than 101 Acetaminophen (Tylenol) 650 mg RECTAL Q4H PRN PRN Reason: Pain (mild 1-3) Albuterol (Proventil Hfa) 0 gm INH Q4HR PRN PRN Reason: Wheezing Aspirin (Aspirin) 325 mg PO WITHBREAKFAST [facility] Last Admin: 02/24/20 08:26 Dose: 325 mg Documented by: Cholecalciferol (Vitamin D3) 25 mcg PO DAILY [facility] Last Admin: 02/24/20 08:32 Dose: 25 mcg Documented by: Dexamethasone (Dexamethasone) 6 mg PO DAILY [facility] Stop: 03/03/20 09:01 Last Admin: 02/24/20 08:26 Dose: 6 mg Documented by: Docusate Sodium (Colace) 100 mg PO BID PRN PRN Reason: Constipation Enoxaparin Sodium (Lovenox) 40 mg SUBCUT DAILY [facility] Last Admin: 02/24/20 08:27 Dose: 40 mg Documented by: Guaifenesin/Phenylephrine HCl (Robitussin Dm) 10 ml PO Q6H PRN PRN Reason: Cough Mometasone Furoate/Formoterol Fumar (Dulera 200-5 Mcg) 2 puff IH BIDRT [facility] Last Admin: 02/24/20 11:27 Dose: 2 puff Documented by: Montelukast Sodium (Singulair) 10 mg PO BEDTIME [facility] Last Admin: 02/23/20 21:06 Dose: 10 mg Documented by: Multivitamins/Minerals (Vitamins And Minerals) 1 tab PO WITHBREAKFAST [facility] Last Admin: 02/24/20 08:26 Dose: 1 tab Documented by: Ondansetron HCl (Zofran Odt) 4 mg PO Q4HR PRN PRN Reason: nausea, able to take PO Pantoprazole Sodium (Protonix) 40 mg PO BID [facility] Last Admin: 02/24/20 08:26 Dose: 40 mg Documented by: Sodium Chloride (Saline Flush) 10 ml FLUSH ASDIRECTED PRN PRN Reason: Keep Vein Open Tiotropium [place] (Spiriva Handihaler) 18 mcg INH BID [facility] Last Admin: 02/24/20 10:06 Dose: 18 mcg Documented by: Zolpidem Tartrate (Ambien) 5 mg PO BEDTIME PRN PRN Reason: Sleep Discontinued Medications Aspirin (Aspirin) 81 mg PO DAILY [facility] Tiotropium [place] (Spiriva Handihaler) 18 mcg INH DAILY [facility] - Exam Quality Assessment: No: Supplemental Oxygen General: Alert, Oriented Neck: Supple Lungs: Normal Respiratory Effort, Decreased Breath Sounds, Rhonchi GI/Abdominal Exam: Normal Bowel Sounds, Soft, Non-Tender Extremities: No Pedal Edema Sepsis Event Note - Evaluation Sepsis Screening Result: No Definite Risk - Focused Exam Vital Signs: Vital Signs Temp Pulse Resp BP Pulse Ox 02/24/20 09:38 97.9 F 88 18 118/72 98 02/24/20 04:25 98.1 F 85 16 107/57 L 98 - Problem List & Annotations (1) Pneumonia due to COVID-19 virus SNOMED Code(s): 461927997837555730 Code(s): U07.1 - COVID-19; J12.89 - OTHER VIRAL PNEUMONIA Status: Acute Current Visit: Yes (2) Exacerbation of asthma SNOMED Code(s): 693306091 Code(s): J45.901 - UNSPECIFIED ASTHMA WITH (ACUTE) EXACERBATION Status: Acute Current Visit: No - Problem List Review Problem List Initiated/Reviewed/Updated: Yes - My Orders Last 24 Hours: My Active Orders 02/23/20 14:00 Albuterol [Proventil HFA] 0 gm INH Q4HR PRN Ondansetron [Zofran ODT] 4 mg PO Q4HR PRN 02/23/20 14:11 Acetaminophen [TylenoL] 650 mg PO Q4H PRN Isolation [COMM] Stat 02/23/20 14:12 CULTURE SPUTUM + SMEAR [RM] Routine 02/23/20 14:14 Dextromethorphan/guaiFENesin [Robitussin DM] 10 ml PO Q6H PRN 02/23/20 14:16 Patient Status [ADT] Routine Oxygen Therapy [RC] PRN RT Post Treatment Assessment [RC] Click to Edit RT Pre-Treatment Assessment [RC] Click to Edit Up With Assistance [RC] ASDIRECTED VTE/DVT Education [RC] PER UNIT ROUTINE Vital Signs [RC] Q4H Acetaminophen [Tylenol] 650 mg RECTAL Q4H PRN Docusate Sodium [Colace] 100 mg PO BID PRN Sodium Chloride 0.9% [Saline Flush] 10 ml FLUSH ASDIRECTED PRN Peripheral IV Insertion Adult [OM.PC] Routine Saline Lock Insert [OM.PC] Routine Resuscitation Status Routine 02/23/20 14:17 Antiembolic Hose [OM.PC] Per Unit Routine 02/23/20 14:18 Antiembolic Devices [RC] PER UNIT ROUTINE Peripheral IV Care [RC] . DIRECTED 02/23/20 14:23 RT Post Treatment Assessment [RC] Click to Edit RT Pre-Treatment Assessment [RC] Click to Edit 02/23/20 14:30 CULTURE BLOOD [BC] Stat PROCALCITONIN [REF] Stat 02/23/20 14:35 CULTURE BLOOD [BC] Stat 02/23/20 17:00 Cholecalciferol (Vitamin D3) [Vitamin D3] 25 mcg PO DAILY Enoxaparin [Lovenox] 40 mg SUBCUT DAILY Multivitamins/Minerals [Vitamins and Minerals] 1 tab PO WITHBREAKFAST Pantoprazole [ProTONIX] 40 mg PO BID dexAMETHasone 6 mg PO DAILY 02/23/20 Dinner Regular Diet [DIET] 02/23/20 21:00 Montelukast [Singulair] 10 mg PO BEDTIME Tiotropium [Spiriva HandiHaler] 18 mcg INH BID Zolpidem [Ambien] 5 mg PO BEDTIME PRN 02/24/20 08:00 Aspirin 325 mg PO WITHBREAKFAST 02/24/20 10:00 Mometasone/Formoterol [Dulera 200-5 MCG] 2 puff IH BIDRT 02/25/20 05:11 BASIC METABOLIC PANEL,BMP [CHEM] AM CBC WITH AUTO DIFF [HEME] AM DD [D-DIMER QUANTITATIVE] [COAG] AM HEPATIC FUNCTION PANEL,[facility] [CHEM] AM 02/26/20 05:11 BASIC METABOLIC PANEL,BMP [CHEM] AM CBC WITH AUTO DIFF [HEME] AM DD [D-DIMER QUANTITATIVE] [COAG] AM HEPATIC FUNCTION PANEL,[facility] [CHEM] AM 02/27/20 05:11 BASIC METABOLIC PANEL,BMP [CHEM] AM CBC WITH AUTO DIFF [HEME] AM DD [D-DIMER QUANTITATIVE] [COAG] AM HEPATIC FUNCTION PANEL,[facility] [CHEM] AM 02/28/20 05:11 BASIC METABOLIC PANEL,BMP [CHEM] AM CBC WITH AUTO DIFF [HEME] AM DD [D-DIMER QUANTITATIVE] [COAG] AM HEPATIC FUNCTION PANEL,[facility] [CHEM] AM 02/29/20 05:11 BASIC METABOLIC PANEL,BMP [CHEM] AM CBC WITH AUTO DIFF [HEME] AM - Plan Plan:: 60-year-old with a history of asthma, nocturnal hypoxemia requiring 2 L nasal cannula oxygen at night. Presented with increasing shortness of breath. Follow closely for Acute hypoxemic respiratory failure secondary to Covid 19 pneumonia Supplement oxygen as needed supplement oxygen at night as baseline Covid 19 pneumonia Comorbidities: asthma, home oxygen 2 l/min at night symptoms started 02/17 with fever, sob Positive covid 19 screen on 02/20 less sob CXR: b/l mild patchy pneumonia 02/20 associated with no hypoxemia beyond baseline LFT, Renal fx. Is good treat with Remdesivir: no - not hypoxemic Dexamethasone : 02/22- Plasma: no - not hypoxemic evaluate for concurrent bacterial infections Follow pro-calcitonin levels In the meantime hold Abx Ddimer is low - DVT prophylaxis SQ Lovenox Asthma with acute exacerbation Start dexamethasone 02/22- Use inhalers cont dulera as scheduled Albuterol as needed Continue Singulair, spiriva
[2020-02-24] MEDS: Montelukast 10 MG Tab PO SCH (21:06)
[2020-02-25 07:51] LABS: ANION GAP 12.9 mEq/L (7-13); CHLORIDE,CL 106 mmol/L (98-107); SODIUM,NA 142 mmol/L (136-145)
[2020-02-25] MEDS: Enoxaparin 40 MG/0.4 ML Syringe SUBCUT SCH (08:57)
[2020-02-25] MEDS: Multivitamins, Therapeutic with Minerals Tab PO SCH (08:58)
[2020-02-25] MEDS: Pantoprazole 40 MG Tab.CR PO SCH ×2 (08:59→21:06)
[2020-02-25] MEDS: Dexamethasone 2 MG Tab PO SCH (08:59)
[2020-02-25] MEDS: Aspirin 325 MG Tab PO SCH (08:59)
[2020-02-25] MEDS: Cholecalciferol (Vitamin D3) 25 MCG Tab PO SCH (08:59)
[2020-02-25] MEDS: Formoterol/Mometasone 200-5 MCG 8.8 GM Inhaler IH SCH ×2 (09:01→21:07)
[2020-02-25] MEDS: Tiotropium Inhaler 18 MCG Inhalation Powder Cap Kit of 5 INH SCH ×2 (09:01→21:07)
[2020-02-25] MEDS: Sodium Chloride 0.9% 10 ML Syringe FLUSH PRN (09:02)
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
[2020-02-25] MEDS: Montelukast 10 MG Tab PO SCH (21:06)
[2020-02-26 07:16] LABS: ANION GAP 13.9 mEq/L (7-13); CHLORIDE,CL 104 mmol/L (98-107); SODIUM,NA 140 mmol/L (136-145)
[2020-02-26 08:53] VITALS: BP 113/68; PULSE 57
[2020-02-26] MEDS: Sodium Chloride 0.9% 10 ML Syringe FLUSH PRN (08:54)
[2020-02-26] MEDS: Tiotropium Inhaler 18 MCG Inhalation Powder Cap Kit of 5 INH SCH (08:55)
[2020-02-26] MEDS: Formoterol/Mometasone 200-5 MCG 8.8 GM Inhaler IH SCH (08:56)
[2020-02-26] MEDS: Enoxaparin 40 MG/0.4 ML Syringe SUBCUT SCH (08:57)
[2020-02-26] MEDS: Pantoprazole 40 MG Tab.CR PO SCH (08:58)
[2020-02-26] MEDS: Cholecalciferol (Vitamin D3) 25 MCG Tab PO SCH (08:58)
[2020-02-26] MEDS: Dexamethasone 2 MG Tab PO SCH (08:58)
[2020-02-26] MEDS: Multivitamins, Therapeutic with Minerals Tab PO SCH (08:58)
[2020-02-26] MEDS: Aspirin 325 MG Tab PO SCH (08:58)
--- NOTE | 2020-02-26 12:13 | PCM.DCSUM1 ---
Discharge Summary - Hospital Course Free Text/Narrative:: 60-year-old with a history of asthma, nocturnal hypoxemia requiring 2 L nasal cannula oxygen at night. Presented with increasing shortness of breath. has chronic hypoxemic respiratory failure using oxygen at night now at baseline Covid 19 pneumonia Comorbidities: asthma, home oxygen 2 l/min at night symptoms started 02/17 with fever, sob Positive covid 19 screen on 02/20 CXR: b/l mild patchy pneumonia 02/20 associated with no hypoxemia beyond baseline LFT, Renal fx. Is good treated with Dexamethasone : 02/22- evaluate for concurrent bacterial infections 02/22 pro-calcitonin level: low hold Abx Ddimer is low - DVT prophylaxis with asa Asthma with acute exacerbation cont dexamethasone 02/22- resume home inhalers Diagnosis: Stroke: No - Discharge Data Discharge Date: 02/26/20 Discharge Disposition: Home, Self-Care 01 Condition: Good - Referral to Home Health Primary Care Physician: Jennifer Zhou FISHER SPEAR - Discharge Diagnosis/Problem(s) (1) Pneumonia due to COVID-19 virus SNOMED Code(s): 606420566007117563 ICD Code: U07.1 - COVID-19; J12.89 - OTHER VIRAL PNEUMONIA Status: Acute Current Visit: Yes (2) Exacerbation of asthma SNOMED Code(s): 500463468 ICD Code: J45.901 - UNSPECIFIED ASTHMA WITH (ACUTE) EXACERBATION Status: Acute Current Visit: No - Patient Instructions Diet: Heart Healthy Diet Activity: As Tolerated - Discharge Plan *PRESCRIPTION DRUG MONITORING PROGRAM REVIEWED*: Not Applicable *COPY OF PRESCRIPTION DRUG MONITORING REPORT IN PATIENT DEO: Not Applicable Prescriptions/Med Rec: Aspirin 325 mg PO WITHBREAKFAST #28 tablet dexAMETHasone [Dexamethasone] 6 mg PO DAILY #7 tablet Cholecalciferol (Vitamin D3) [Vitamin D3] 25 mcg PO DAILY 10 Days #10 tablet Multivitamins/Minerals [Vitamins and Minerals] 1 tab PO WITHBREAKFAST #30 tablet Home Medications: Home Meds Albuterol [Ventolin HFA] 2 puff IH Q4HR PRN 04/13/14 [History] EPINEPHrine [Epinephrine] 0.3 mg IM ASDIRECTED PRN 07/08/16 [History] Ibuprofen 600 mg PO Q8H PRN 07/08/16 [History] Montelukast [Singulair] 10 mg PO BEDTIME 07/08/16 [History] Omalizumab [Xolair] 2.4 ml INJECT Q14D 07/08/16 [History] Acetaminophen 650 mg PO Q6HR PRN 02/23/20 [History] Aspirin [Aspirin EC] 325 mg PO DAILY 02/23/20 [History] Budesonide [Pulmicort] 0.5 mg NEB DAILY 02/23/20 [History] Budesonide/Formoterol Fumarate [Budesonide-Formoterol 160-4.5] 2 puff IH BID 02/23/20 [History] Calcium Carbonate [Calcium] 1,200 mg PO BID 02/23/20 [History] Fluticasone Furoate [Veramyst] 2 sprays NASBOTH DAILY 02/23/20 [History] Ipratropium/Albuterol Sulfate [Iprat-Albut 0.5-3(2.5) mg/3 ml] 3 ml IH Q4H PRN 02/23/20 [History] L.acidoph,Paracasei, B.lactis [Probiotic] 1 tab PO DAILY 02/23/20 [History] Mag Hydrox/Aluminum Hyd/Simeth [Maalox Maximum Strength Susp] 5 - 10 ml PO QID PRN 02/23/20 [History] Mometasone Furoate [Nasonex [place]] 2 spray NASBOTH BID 02/23/20 [History] Pantoprazole Sodium [Protonix] 40 mg PO BID 02/23/20 [History] Rosuvastatin [Crestor] 10 mg PO BEDTIME 02/23/20 [History] Tiotropium [place] [Spiriva Respimat] 2 puff IH BID 02/23/20 [History] Triamcinolone Acetonide [Triamcinolone Acetonide 0.1% Oint] 1 applic TOP BID 02/23/20 [History] Ubidecarenone [Co Q-10] 100 mg PO DAILY 02/23/20 [History] levalbuterol HCL [Levalbuterol HCl] 1.25 mg IH Q4HR PRN 02/23/20 [History] Aspirin 325 mg PO WITHBREAKFAST #28 tablet 02/26/20 [Rx] Cholecalciferol (Vitamin D3) [Vitamin D3] 25 mcg PO DAILY 10 Days #10 tablet 02/26/20 [Rx] Multivitamins/Minerals [Vitamins and Minerals] 1 tab PO WITHBREAKFAST #30 tablet 02/26/20 [Rx] dexAMETHasone [Dexamethasone] 6 mg PO DAILY #7 tablet 02/26/20 [Rx] Oxygen Therapy Mode: Nasal Cannula (at night) Patient Handouts: Alendronate; Cholecalciferol tablets, COVID-19 Frequently Asked Questions, Viral Respiratory Infection Test, Infection Prevention in the Home, Dexamethasone tablets, Prevent the Spread of COVID-19 if You Are Sick - [facility] Referrals: Jennifer Zhou NP [Primary Care Provider] - - Discharge Summary/Plan Comment DC Time >30 min.: No - General Info Date of Service: 02/26/20 Admission Dx/Problem (Free Text: Admission Diagnosis/Problem Admission Diagnosis/Problem Pneumonia Subjective Update: feeling better Shortness of breath is better She is not on oxygen during the day but has been using it with activity and during the night -like her baseline - Review of Systems General: Denies: Fever, Weakness Pulmonary: Reports: Shortness of Breath (improved) Cardiovascular: Denies: Chest Pain, Edema Neurological: Denies: Confusion - Patient Data Vitals - Most Recent: Last Vital Signs Temp 98.5 F 02/26/20 08:52 Pulse 57 L 02/26/20 08:52 Resp 18 02/26/20 08:52 BP 113/68 02/26/20 08:52 Pulse Ox 99 02/26/20 08:52 Weight - Most Recent: 213 lb 6.4 oz Lab Results - Last 24 hrs: Laboratory Results - last 24 hr 02/26/20 02/26/20 02/26/20 Range/Units 06:25 06:25 06:25 WBC 7.8 (5.0-10.0) 10^3/uL RBC 4.60 (4.2-5.4) 10^6/uL Hgb 11.9 L (12.0-16.0) g/dL Hct 37.1 (37.0-47.0) % MCV 80.7 (80-100) fL MCH 25.9 L (27.0-34.0) pg MCHC 32.1 L (33.0-35.0) g/dL Plt Count 306 (150-450) 10^3/uL Neut % (Auto) 75.1 (42.2-75.2) % Lymph % (Auto) 16.3 L (20.5-50.1) % [place] % (Auto) 8.5 H (2-8) % Eos % (Auto) 0.0 L (1.0-3.0) % Baso % (Auto) 0.1 (0.0-1.0) % Add Manual Diff Yes Neutrophils % (Manual) 82 H (42-75) % Band Neutrophils % 1 % Lymphocytes % (Manual) 15 L (20-50) % Monocytes % (Manual) 2 (2-8) % Toxic Granulation Few Poikilocytosis 1+ slight Anisocytosis 1+ slight D-Dimer, Quantitative 122 (0-400) ng/mL Sodium 140 (136-145) mmol/L Potassium 3.9 (3.5-5.1) mmol/L Chloride 104 (98-107) mmol/L Carbon Dioxide 26 (21-32) mmol/L Anion Gap 13.9 H (7-13) mEq/L BUN 14 (7-18) mg/dL Creatinine 0.80 (0.55-1.02) mg/dL Est Cr Clr Drug Dosing 63.22 mL/min Estimated GFR (MDRD) > 60 Glucose 144 H (74-99) mg/dL Calcium 8.7 (8.5-10.1) mg/dL Total Bilirubin 0.5 (0.2-1.0) mg/dL Direct Bilirubin 0.1 (0.0-0.2) mg/dL Indirect Bilirubin 0.4 AST 46 H (15-37) U/L ALT 85 H (14-59) U/L Alkaline Phosphatase 159 H (46-116) U/L Total Protein 6.8 (6.4-8.2) g/dL Albumin 3.1 L (3.4-5.0) g/dL Globulin 3.7 Albumin/Globulin Ratio 0.84 DARIO Results - Last 24 hrs: Microbiology 02/23/20 14:35 Aerobic Blood Culture - Preliminary Blood - Arm, Right NO GROWTH AFTER 2 DAYS Anaerobic Blood Culture - Final 02/23/20 14:30 Aerobic Blood Culture - Preliminary Blood - Arm, Left NO GROWTH AFTER 2 DAYS Anaerobic Blood Culture - Preliminary NO GROWTH AFTER 2 DAYS Med Orders - Current: Current Medications Acetaminophen (Tylenol) 650 mg PO Q4H PRN PRN Reason: Fever Greater Than 101 Acetaminophen (Tylenol) 650 mg RECTAL Q4H PRN PRN Reason: Pain (mild 1-3) Albuterol (Proventil Hfa) 0 gm INH Q4HR PRN PRN Reason: Wheezing Aspirin (Aspirin) 325 mg PO WITHBREAKFAST [facility] Last Admin: 02/26/20 08:58 Dose: 325 mg Documented by: Cholecalciferol (Vitamin D3) 25 mcg PO DAILY [facility] Last Admin: 02/26/20 08:58 Dose: 25 mcg Documented by: Dexamethasone (Dexamethasone) 6 mg PO DAILY [facility] Stop: 03/03/20 09:01 Last Admin: 02/26/20 08:58 Dose: 6 mg Documented by: Docusate Sodium (Colace) 100 mg PO BID PRN PRN Reason: Constipation Enoxaparin Sodium (Lovenox) 40 mg SUBCUT DAILY [facility] Last Admin: 02/26/20 08:57 Dose: 40 mg Documented by: Guaifenesin/Phenylephrine HCl (Robitussin Dm) 10 ml PO Q6H PRN PRN Reason: Cough Mometasone Furoate/Formoterol Fumar (Dulera 200-5 Mcg) 2 puff IH 0900,2100 [facility] Last Admin: 02/26/20 08:56 Dose: 2 puff Documented by: Montelukast Sodium (Singulair) 10 mg PO BEDTIME [facility] Last Admin: 02/25/20 21:06 Dose: 10 mg Documented by: Multivitamins/Minerals (Vitamins And Minerals) 1 tab PO WITHBREAKFAST [facility] Last Admin: 02/26/20 08:58 Dose: 1 tab Documented by: Ondansetron HCl (Zofran Odt) 4 mg PO Q4HR PRN PRN Reason: nausea, able to take PO Pantoprazole Sodium (Protonix) 40 mg PO BID [facility] Last Admin: 02/26/20 08:58 Dose: 40 mg Documented by: Sodium Chloride (Saline Flush) 10 ml FLUSH ASDIRECTED PRN PRN Reason: Keep Vein Open Last Admin: 02/26/20 08:54 Dose: 10 ml Documented by: Tiotropium [place] (Spiriva Handihaler) 18 mcg INH BID [facility] Last Admin: 02/26/20 08:55 Dose: 18 mcg Documented by: Zolpidem Tartrate (Ambien) 5 mg PO BEDTIME PRN PRN Reason: Sleep Discontinued Medications Aspirin (Aspirin) 81 mg PO DAILY [facility] Mometasone Furoate/Formoterol Fumar (Dulera 200-5 Mcg) 2 puff IH BIDRT [facility] Last Admin: 02/24/20 17:35 Dose: 2 puff Documented by: Tiotropium [place] (Spiriva Handihaler) 18 mcg INH DAILY [facility] - Exam General: Reports: Alert, Oriented Neck: Reports: Supple Lungs: Reports: Normal Respiratory Effort, Decreased Breath Sounds. Denies: Wheezing Cardiovascular: Reports: Regular Rate, Regular Rhythm GI/Abdominal Exam: Normal Bowel Sounds, Soft, Non-Tender Extremities: No Pedal Edema Neurological: Reports: No New Focal Deficit Psy/Mental Status: Reports: Alert, Normal Affect, Normal Mood
== END 2020-02-26 14:45 | disposition home or self-care (01) ==
LOC: UNDOADMOB 13:20 → DL.MS 13:20
PROVIDERS: ADMIT Internal Medicine; ATTEND Internal Medicine
DX: U07.1 COVID-19 (principal); J12.89 Other viral pneumonia; J96.01 Acute respiratory failure with hypoxia; E66.9 Obesity, unspecified; J45.901 Unspecified asthma with (acute) exacerbation; Z99.81 Dependence on supplemental oxygen; Z98.890 Other specified postprocedural states; Z79.899 Other long term (current) drug therapy; Z79.82 Long term (current) use of aspirin; Z68.37 Body mass index [BMI] 37.0-37.9, adult
CPT/HCPCS: 36415; 71045; 80048; 80076; 82728; 83605; 83615; 84145; 85025; 85379; 85610; 86140; 87040; A9270; J1650; J8540; 96361; 96372; G0378; G0379

== ENCOUNTER 2022-03-13 15:05 | Emergency (ER) | payer OTHER ==
[2022-03-13 15:37] VITALS: BP 127/65; PULSE 83
== END 2022-03-13 15:57 | disposition home or self-care (01) ==
LOC: DL.ED 15:05
DX: S81.011A Laceration without foreign body, right knee, initial encounter (principal); J45.909 Unspecified asthma, uncomplicated; K21.9 Gastro-esophageal reflux disease without esophagitis; M19.90 Unspecified osteoarthritis, unspecified site; E66.9 Obesity, unspecified; Z68.41 Body mass index [BMI] 40.0-44.9, adult; Z91.041 Radiographic dye allergy status; Z79.82 Long term (current) use of aspirin; Z79.899 Other long term (current) drug therapy; W26.8XXA Contact with other sharp object(s), not elsewhere classified, initial encounter
CPT/HCPCS: 99282

== ENCOUNTER 2023-07-29 11:58 | Emergency (ER) | payer OTHER ==
[2023-07-29 12:18] VITALS: BP 140/81; PULSE 90
[2023-07-29] MEDS: Oxymetazoline 0.05% Nasal Spray 30 ML Bottle NAS ONE (12:42)
[2023-07-29] MEDS: Silver Nitrate Applicator Each TOP ONE (12:56)
== END 2023-07-29 14:05 | disposition home or self-care (01) ==
LOC: DL.ED 11:58
DX: R04.0 Epistaxis (principal); K21.9 Gastro-esophageal reflux disease without esophagitis; J45.909 Unspecified asthma, uncomplicated; Z90.49 Acquired absence of other specified parts of digestive tract; Z79.51 Long term (current) use of inhaled steroids; Z79.82 Long term (current) use of aspirin; Z79.899 Other long term (current) drug therapy; Z91.041 Radiographic dye allergy status; Z86.16 Personal history of COVID-19; E66.9 Obesity, unspecified; Z68.41 Body mass index [BMI] 40.0-44.9, adult
CPT/HCPCS: 30901; 99283; A9270